=== PATIENT | female | born 1955 | race African-American/Black ===

== ENCOUNTER 2017-01-23 09:03 | Day surgery (SDC) | payer MEDICARE, OTHER ==
--- NOTE | ~2017-01-23 | OP ---
Record Of Operation [facility] [address] [place]. [address] NAME: RITA PASTRANA : 55 STATUS : REG [facility] PAT#: [id number] AGE: 61 ADM/REG DATE : 01/23/17 MR#: [id number] REPORT SERV DATE: 01/23/17 DICTATED BY: DIANA PINEDA III DATE: 01/23/17 REPORT STATUS : Draft TRANSCRIBED BY: MODL DATE: 01/23/17 DATE OF PROCEDURE: 01/23/2017 PREOPERATIVE DIAGNOSIS: End-stage renal disease, with need for removal of unused peritoneal dialysis catheter. POSTOPERATIVE DIAGNOSIS: End-stage renal disease, with need for removal of unused peritoneal dialysis catheter. PROCEDURE: Removal of unused peritoneal dialysis catheter. SURGEON: Dr. Diana Pineda. ANESTHESIA: General with intubation. COMPLICATIONS: None. ESTIMATED BLOOD LOSS: Less than 5 mL. SPECIMENS: Catheter for identification. DRAINS: None. LAP AND SPONGE COUNT: Correct x3. BRIEF HISTORY: This 61-year-old female has a history of end-stage renal disease. The patient is currently dependent on hemodialysis. She has a peritoneal dialysis catheter which was placed in [place] over 10 years ago. It was felt that removal of this catheter was indicated. This procedure, the risks, benefits, and alternatives, including but not limited to the risk for bleeding, infection, enterotomy, injury to abdominal structure, postop small bowel obstruction, ileus, incisional hernia, dehiscence, leakage of ascites from her incision and unforeseen complications including deep venous thrombosis, pulmonary embolus, myocardial infarction, stroke, pneumonia, and , were fully explained to the patient prior to surgery. Her questions were answered. She understood the risks and agreed to the surgery as planned. PROCEDURE IN DETAIL: After being properly identified and after discussing the risks of surgery with the patient and her family again in the preoperative area, she was taken to the operating room and placed in the supine position on the operating room table. General anesthesia was administered. She was intubated without difficulty. The abdomen was prepped and draped sterilely in the usual fashion. After an appropriate "time-out" per JCAHO standards, a small vertical incision was made in the midline, beneath the navel, over the previous incision. The incision was continued through the subcutaneous tissue. Hemostasis was controlled with electrocautery. The incision was continued down to the fascia. The cuff at the level of the fascia was identified. This was dissected free from the fascia. The intraabdominal portion of the catheter was completely removed. The entire catheter was Record Of Operation [facility] [address] [place]. [address] NAME: RITA PASTRANA : 55 STATUS : REG [facility] PAT#: [id number] AGE: 61 ADM/REG DATE : 01/23/17 MR#: [id number] REPORT SERV DATE: 01/23/17 DICTATED BY: DIANA PINEDA III DATE: 01/23/17 REPORT STATUS : Draft TRANSCRIBED BY: MODL DATE: 01/23/17 removed. The exit site of the catheter from the abdominal wall was closed by closing the fascia with interrupted 0 Prolene suture. It should be noted that immediately on removing the catheter, a large amount of clear ascites came gushing forward from the abdominal cavity. This was aspirated but there was an extremely large amount of ascites which continued. This was closed again with interrupted 0 Prolene sutures. Using sharp dissection, the second cuff which was in the subcutaneous tissue was dissected free from the subcutaneous tissue and brought through the left lateral abdominal wall incision where the catheter was exiting. The entire catheter was removed including the intraabdominal portion of the catheter in the intraabdominal wall portion of the catheter. Hemostasis was assured. The subcutaneous tissue of the midline incision was closed with a running 3-0 chromic suture. The skin was closed with running subcuticular 4-0 Monocryl stitch. Dressings were applied. Anesthesia was reversed. The patient was taken to the recovery room in stable condition. She tolerated the procedure well. Her family was informed of the results of surgery. The patient will be discharged when stable and comfortable. Her family was advised that she should keep the wounds clean and dry for 48 hours and that she should resume her usual medications and that she should not perform any heavy lifting for four-to- five weeks. She has been asked to return in two weeks for followup or sooner if any fever, chills, wound drainage, or other problems prior to that time. She was given a prescription for Percocet 7.5 one t.i.d., #12, as needed for pain, which she was advised not to use while driving. RHJ/MODL Diana Pineda III, M.D. / [id number] CC: Han Reed III
--- NOTE | ~2017-01-23 | PREOPHP ---
PreOp History and Physical [address] [place]. [address] NAME: RITA PASTRANA : 55 STATUS : [facility]#: [id number] AGE: 61 ADM/REG DATE : 01/23/17 MR#: [id number] REPORT SERV DATE: 01/24/17 DICTATED BY: DIANA PINEDA III DATE: 12/31/16 REPORT STATUS : Draft TRANSCRIBED BY: MODTristin DATE: 12/31/16 HISTORY OF PRESENT ILLNESS: This 61-year-old female comes to the operating room for removal of a peritoneal dialysis catheter. The patient has a history of end-stage renal disease. She is currently dependent on hemodialysis. The patient has a peritoneal dialysis catheter which was placed [address] [facility]. Recently, she has developed congestive heart failure and it was felt that she is no longer a candidate for peritoneal dialysis. She comes to the operating room now for removal of this peritoneal dialysis catheter. PAST MEDICAL HISTORY: 1. End-stage renal disease, dialysis dependent. 2. History congestive heart failure. 3. Hyperlipidemia. 4. Hypertension. ALLERGIES: AMOXICILLIN, AUGMENTIN, AND PENICILLIN. MEDICATIONS: Imuran, Dialyvite, calcium, Plavix, [place], iron, folic acid, gentamicin, hydroxyzine, loperamide, megestrol, omeprazole, potassium, pravastatin, and temazepam. FAMILY HISTORY: Unremarkable. PAST SURGICAL HISTORY: Status post peritoneal dialysis catheter placement in 2006. SOCIAL HISTORY: No history of tobacco or alcohol use. REVIEW OF SYSTEMS: The patient's 14-point review of systems is otherwise unremarkable. PHYSICAL EXAMINATION: GENERAL: This is a female in no acute distress. She is alert and oriented x3. VITAL SIGNS: Blood pressure is 149/89, pulse 43, and temp 98.1. HEENT: Unremarkable. Cranial nerves 2 through 12 are jim. LUNGS: Clear. CARDIAC: Normal. ABDOMEN: Soft, nontender. She has a peritoneal dialysis catheter exiting from her mid abdomen. There is a long midline incision. EXTREMITIES: Unremarkable. ASSESSMENT: 1. 61-year-old female with end-stage renal disease, now dependent on hemodialysis, with need for removal of unused peritoneal dialysis catheter. 2. End-stage renal disease, dialysis dependent. 3. Congestive heart failure. PreOp History and Physical [id number] [place]. [address] NAME: RITA PASTRANA : 55 STATUS : [facility]#: [id number] AGE: 61 ADM/REG DATE : 01/23/17 MR#: [id number] REPORT SERV DATE: 01/24/17 DICTATED BY: DIANA PINEDA III DATE: 12/31/16 REPORT STATUS : Draft TRANSCRIBED BY: PAULA DATE: 12/31/16 4. Hypertension. 5. Hyperlipidemia. PLAN: The patient comes to the operating room now for removal of this peritoneal dialysis catheter. I have explained to the patient that full laparotomy may be required depending on the internal location of the inner cuff. I explained that I did not place this catheter and therefore it is unclear exactly the anatomy involved and therefore a laparotomy may be required. This procedure, the risks, benefits, and alternatives, including but not limited to the risk for bleeding, infection, enterotomy, injury to any abdominal structure, postop small bowel obstruction, ileus, incisional hernia, dehiscence, leakage of dialysis fluid from her incision and unforeseen complications including deep venous thrombosis, pulmonary embolus, myocardial infarction, stroke, pneumonia, , have been explained to the patient prior to the surgery. The expected length of recovery has been explained to the patient. The patient's questions have been answered. She understands the risks and agrees to surgery as planned. RHCricket/PAULA Diana Pineda III, M.D. / [id number] CC: João Membreno M.D.
[~2017-01-23 09:03] MED LIST: ACET500CAP PO; ALLEGRA180 PO; FLONASE NAS; FOLIC PO; HALF81 PO; MEG20 PO; MULTIPLE VIT PO; NORV5 PO; PLAVIX PO; PRAVACHOL40 MG PO; PROAIR HFA INH; SENSIPAR30 MG PO
[2017-01-23 10:14] LABS: HEMATOCRIT 44.9 % (36.0-48.0); HEMOGLOBIN 14.2 g/dL (12.0-16.0); MEAN CORPUS HGB CONC 31.6 g/dL (32.0-36.0); MEAN CORPUSCULAR HEMOGLOB 29.6 pg (26.0-34.0); MEAN CORPUSCULAR VOLUME 93.7 fL (80-100); MEAN PLATELET VOLUME 11.8 fL (9.2-13.0); PLATELET COUNT 158 10/3/uL (150-400); RBC DISTRIBUTION WIDTH 15.2 % (12.0-16.0); RED CELL COUNT 4.79 10/6/uL (4.0-5.6); WHITE BLOOD CELLS 3.6 10/3/uL (4.5-10.5)
[2017-01-23 10:17] LABS: MANUAL DIFF YES %
[2017-01-23 10:32] LABS: ALBUMIN 2.9 G/DL (3.5-5.0); BUN (BLOOD UREA NITROGEN) 15 MG/DL (6-23); CALCIUM, SERUM 9.7 MG/DL (8.5-10.4); CHLORIDE, SERUM 97 MMOL/L (96-112); CO2 (CARBON DIOXIDE) 33 MMOL/L (24-34); CREATININE 5.73 MG/DL (0.55-1.02); GFR AFRICAN AMERICAN 9 ML/MIN (>=60); GFR NON AFRICAN AMERICAN 7 ML/MIN (>=60); GLUCOSE, SERUM 72 MG/DL (60-99); SGPT(ALT) 13 U/L (5-65); SODIUM, SERUM 134 MMOL/L (135-148); TOTAL BILIRUBIN 0.8 MG/DL (0-1.2)
[2017-01-23 10:33] LABS: A/G RATIO 0.4 (0.7-1.9); ALKALINE PHOSPHATASE 157 U/L (45-117); GLOBULIN 6.9 G/DL (2.5-4.1); TOTAL PROTEIN 9.8 G/DL (6.0-8.5)
[2017-01-23 10:34] LABS: BAND NEUTROPHILS 1 %; EOSINOPHILS 8 %; EOSINOPHILS ABSOLUTE (CALC) 0.29 10/3/uL (0.0-0.53); LYMPHOCYTES 36 %; MONOCYTES 18 %; MONOCYTES ABSOLUTE (CALC) 0.65 10/3/uL (0.21-1.20); NEUTROPHILS ABSOLUTE (CALC) 1.37 10/3/uL (2.02-8.40); POTASSIUM, SERUM 4.8 MMOL/L (3.5-5.3); SEGMENTED NEUTROPHIL (0) 37 %; SGOT(AST) 43 U/L (5-40); TOTAL NUCLEATED CELLS 100
[2017-01-23 10:35] LABS: PLATELET ESTIMATE ADQ (ADEQUATE); TOXIC GRANULATION 1+; VACUOLATED NEUTROPHILES OCC
[2017-01-23 10:36] LABS: POIKILOCYTOSIS 1+ (5-10/OIF) (0-5/OIF)
[2017-03-22] MEDS ORDERED: NORV5 PO (09:46)
[2017-03-22] MEDS ORDERED: SINGULAIR1 PO (09:56)
[2017-03-22] MEDS ORDERED: ZOFRAN ODT4 MG PO (09:58)
[2017-03-22] MEDS ORDERED: REST75 PO (09:58)
[2017-03-22] MEDS ORDERED: PR25 PO (09:59)
[2017-03-22] MEDS ORDERED: FLONASE NAS (10:00)
[2017-03-22] MEDS ORDERED: ROCALTROL 0.0.25 MCG PO (10:01)
[2017-03-22] MEDS ORDERED: COREG25 PO (10:05)
[2017-03-22] MEDS ORDERED: ZYRTEC ALLGY10 MG PO (10:06)
[2017-03-22] MEDS ORDERED: ASTELIN NAS (10:07)
[2017-03-22] MEDS ORDERED: IMU PO (10:07)
[2017-03-22] MEDS ORDERED: ENDOCET1 TA1 PO (10:09)
[2017-05-13] MEDS ORDERED: BEVESPI AEROS10.7 GM INH (11:19)
[2017-05-13] MEDS ORDERED: PROAIR HFA INH (11:20)
[2017-05-13] MEDS ORDERED: STIOLTO RESPIMAT4 GM INH (11:21)
[2017-05-17] MEDS ORDERED: PRAVACHOL80 MG PO (19:19)
[2017-05-17] MEDS ORDERED: PROAIR HFA INH (19:19)
[2017-05-17] MEDS ORDERED: BEVESPI AEROS10.7 GM INH (19:20)
[2017-05-17] MEDS ORDERED: STIOLTO RESPIMAT4 GM INH (19:20)
[2017-05-17] MEDS ORDERED: SENSIPAR30 MG PO (19:20)
[2017-05-17] MEDS ORDERED: AT25 PO (19:21)
[2017-05-17] MEDS ORDERED: PLAVIX PO (19:21)
[2017-05-17] MEDS ORDERED: FOLIC ACID400 MC1 PO (19:22)
[2017-05-17] MEDS ORDERED: GENERLAC PO (19:22)
[2017-05-17] MEDS ORDERED: ASAB PO (19:22)
[2017-05-17] MEDS ORDERED: BIST PO (19:23)
[2017-05-17] MEDS ORDERED: ASTELIN NAS (19:24)
[2017-05-17] MEDS ORDERED: 8 HOUR650 MG PO (19:26)
[2017-05-17] MEDS ORDERED: NEO-OINT15 TOP (19:27)
[2017-05-19] MEDS ORDERED: PROTONIXIV (19:01)
== END 2017-01-23 21:18 | disposition home or self-care (01) ==
LOC: SDC 09:03
PROVIDERS: Surgery
PROC: 0WPG03Z Removal of Infusion Device from Peritoneal Cavity, Open Approach (ICD-10-PCS; principal; 2017-01-23 11:15)
DX: Z49.02 Encounter for fitting and adjustment of peritoneal dialysis catheter (principal); I13.2 Hypertensive heart and chronic kidney disease with heart failure and with stage 5 chronic kidney disease, or end stage renal disease; N18.6 End stage renal disease; I50.9 Heart failure, unspecified; E78.5 Hyperlipidemia, unspecified; Z88.1 Allergy status to other antibiotic agents; Z88.0 Allergy status to penicillin; Z88.8 Allergy status to other drugs, medicaments and biological substances; Z90.49 Acquired absence of other specified parts of digestive tract; Z98.890 Other specified postprocedural states
CPT/HCPCS: 71020; 80053; 85025; 88300; 93005; A9270-GY; J0330; J1956; J2250; J2405; J3010

== ENCOUNTER 2017-03-12 19:01 | Inpatient (IN) | payer MEDICARE, OTHER ==
--- NOTE | ~2017-03-12 | CN ---
Consultation Report [facility] [address] [place]. [address] NAME: RITA PASTRANA : 55 STATUS : ADM IN [facility]#: [id number] AGE: 61 ADM/REG DATE : 03/13/17 MR#: [id number] REPORT SERV DATE: 03/15/17 DICTATED BY: TAJ VELASQUEZ DATE: 03/15/17 REPORT STATUS : Draft TRANSCRIBED BY: MODTristin DATE: 03/15/17 CARDIOLOGY CONSULTATION DATE OF CONSULTATION: 03/15/2017 REASON FOR CONSULT: Murmur and pericardial effusion. HISTORY OF PRESENT ILLNESS: Ms. Pastrana is a 61-year-old female known to [place], who is being admitted with ascites of undetermined etiology. She is now status post a large volume paracentesis removing 6.7 L, which is undergoing evaluation by Gastroenterology. She has known end-stage renal disease and status post recent transition from peritoneal dialysis to standard hemodialysis. She has a known baseline murmur and a chronic small pericardial effusion. She has had several recent serial echocardiogram to reassess this, all with similar findings of an LVEF 50%-55%, LVH, aortic valve sclerosis, and mild mitral regurgitation. She was recently hospitalized at [facility] for an unrelated reason and had a mildly abnormal troponin, which was evaluated with [id number] heart catheterization that showed left dominant circulation with mild nonobstructive calcific coronary artery disease. No aortic valve gradient was noted at that time. She is now resting much more comfortably. She has had no recent chest pain/angina. She denies palpitations or syncope. She has had no lower extremity edema. REVIEW OF SYSTEMS: Pertinent positives and negatives are as outlined above, other pertinents include early satiety before her large volume paracentesis. Some weight loss. Generalized fatigue and malaise. No fevers. No cough or sputum production. PAST MEDICAL HISTORY: 1. Chronic diastolic heart failure. 2. Coronary artery disease, mild-nonobstructive. 3. Hypertension. 4. Hyperlipidemia. 5. End-stage renal disease. 6. Systemic lupus. CURRENT HOME MEDICATIONS: 1. Plavix 75 mg daily. 2. Pravastatin 80 mg at bedtime. 3. Prilosec as directed. 4. Megace as directed. 5. Renvela 2400 mg with meals. 6. Potassium supplementation. 7. Hydroxyzine p.r.n. 8. Folic acid supplementation. 9. Iron supplementation. Consultation Report [address] [place]. [address] NAME: RITA PASTRANA : 55 STATUS : ADM IN PAT#: [id number] AGE: 61 ADM/REG DATE : 03/13/17 MR#: [id number] REPORT SERV DATE: 03/15/17 DICTATED BY: TAJ VELASQUEZ DATE: 03/15/17 REPORT STATUS : Draft TRANSCRIBED BY: PAULA DATE: 03/15/17 10.Sensipar tabs as directed. 11.PhosLo 667 mg with meals. 12.Vitamin B supplementation. ALLERGIES: INCLUDE AUGMENTIN AND AMOXICILLIN, WHICH CAUSE SWELLING AND ITCHING. SOCIAL HISTORY: She does not use tobacco products, consume alcohol, or illegal drugs. FAMILY HISTORY: Significant for CAD. PHYSICAL EXAMINATION: VITALS: Temperature is 99.9, pulse 70, respirations 16, and blood pressure 120/80. GENERAL: A chronically ill-appearing female, who appears older than stated age and is in no acute distress. HEENT: Sclerae anicteric, mucous membranes moist and without lesions. NECK: No jugular venous distention. No hepatojugular reflux, carotid upstrokes 2+ and symmetric, there are no carotid or subclavian bruit. LUNGS: Mildly decreased breath sounds at bilateral bases with no crackles. CARDIOVASCULAR: Regular with soft S1 and normal S2. No audible S3. There is a 2/6 early systolic ejection murmur at the right sternal border without radiation. No parasternal lift. PMI is not palpable. ABDOMEN: Mildly distended, soft, nontender. Bowel sounds positive and normoactive. There is a slight fluid wave noted. PULSES: Radial and dorsalis pedis 1+ and symmetric. EXTREMITIES: Warm. No edema. SKIN: No clubbing or cyanosis, no rashes or lesions. IMPRESSION: 1. Ascites. 2. Chronic diastolic heart failure. 3. Nonobstructive coronary artery disease. 4. Aortic valve sclerosis without stenosis. 5. Mild mitral regurgitation. 6. Small chronic pericardial effusion. 7. End-stage renal disease, on hemodialysis. 8. Systemic lupus. 9. Hypertension. 10.Hyperlipidemia. PLAN: Ms. Pastrana has a known chronic murmur, which sounds at baseline on physical exam, and has been assessed with recent serial echocardiograms and is unchanged. She also had no significant aortic valve gradient on a recent cardiac catheterization, which showed nonobstructive CAD with a left dominant coronary circulation. Her degree of ascites is not explained by chronic diastolic heart failure. We will review her recently repeated echocardiogram. No other cardiac recommendations foreseen at this time due to her extensive Consultation Report [address] [place]. [address] NAME: RITA PASTRANA : 55 STATUS : ADM IN PAT#: [id number] AGE: 61 ADM/REG DATE : 03/13/17 MR#: [id number] REPORT SERV DATE: 03/15/17 DICTATED BY: TAJ VELASQUEZ. DATE: 03/15/17 REPORT STATUS : Draft TRANSCRIBED BY: PAULA DATE: 03/15/17 recent evaluation. Ongoing GI evaluation and hemodialysis per Nephrology. AEA/PAULA Taj Velasquez M.D. / [id number] CC: Cleveland Quinteros III, M.D.
--- NOTE | ~2017-03-12 | CN ---
Consultation Report [facility] [address] [place]. [address] NAME: RITA PASTRANA : 55 STATUS : DIS IN PAT#: [id number] AGE: 61 ADM/REG DATE : 03/13/17 MR#: [id number] REPORT SERV DATE: 03/17/17 DICTATED BY: SHANNA GOVEA DATE: 03/14/17 REPORT STATUS : Draft TRANSCRIBED BY: MODL DATE: 03/14/17 GI CONSULTATION DATE OF CONSULTATION: 03/14/2017 REASON FOR CONSULTATION: Evaluation and management of ascites. HISTORY OF PRESENT ILLNESS: Ms. Pastrana is a 61-year-old female patient, who was supposed to see Dr. Barba on 03/13/2017 in the outpatient setting secondary to abdominal distention, however, she was seen by Dr. Quinteros on the 03/12/2017, who subsequently admitted her to the hospital for further management. She had presented to Dr. Quinteros office with progressive tense abdominal ascites. She does have a history of end-stage renal disease, now hemodialysis dependent. She has a history of previous peritoneal dialysis. She complains of beginning to notice distention of her abdomen in October of this year which has progressively worsened to the point where she was unable to eat. It did make her short of breath. When she was seen by Dr. Quinteros, it was felt she needed to be admitted secondary to her tense abdominal ascites. Of note, the patient was noted to be at [facility] in October of this year secondary to cardiac reasons, at that point in time, she had an echo showing an ejection fraction of 55%. Noted a CT scan at [facility] done in July 2016, noted some small volume ascites. She was seen here on 03/04/[address] scan being done showing small to moderate pericardial effusion with underlying mild cardiomegaly and a large volume of ascites. She underwent on 03/13/2017 ultrasound of the abdomen showing large volume ascites. The liver size and echogenicity were normal. Color Doppler shows normal hepatopetal flow in normal caliber portal vein. She had a large volume of ascites in both upper quadrants. Splenic size was normal. The splenic tearing, contained multiple echogenic foci. She underwent paracentesis on 03/13/2017 with removal of 6.7 L of clear yellow ascites. She states that after removal of the fluid she felt dramatically better. She was able to eat overnight without difficulty. She does state this morning that she feels like she has reaccumulated some fluid, but she has no tense abdominal ascites. She has a round abdomen which is soft, no fluid shift was noted. She has no complaints of abdominal pain at this time. In review of fluid analysis no albumin from ascites was sent. I have discussed with the lab, they did keep some of her fluid. We will have them run an albumin on that so we could calculate a SAAG level to help us further clarify her possible calls of ascites whether it would be transudative or exudative. She has a notable past medical history for end-stage renal disease, previous peritoneal dialysis, now on hemodialysis, congestive heart failure, last ejection fraction of 55%, hyperlipidemia, hypertension, ascites, lupus. SURGICAL HISTORY: PD catheter replaced in 2006, removal 2017; cholecystectomy. SOCIAL HISTORY: She has no history of alcohol, tobacco, or illicits. She lives independently with her mother. FAMILY HISTORY: Noncontributory from a GI standpoint. Consultation Report [address] [place]. [address] NAME: RITA PASTRANA : 55 STATUS : DIS IN PAT#: [id number] AGE: 61 ADM/REG DATE : 03/13/17 MR#: [id number] REPORT SERV DATE: 03/17/17 DICTATED BY: SHANNA GOVEA DATE: 03/14/17 REPORT STATUS : Draft TRANSCRIBED BY: PAULA DATE: 03/14/17 ALLERGIES: TO AMOXICILLIN, AUGMENTIN, PENICILLIN. HOME MEDICATIONS: Consist of vitamin B complex, PhosLo, Sensipar, Plavix, ferrous sulfate, folic acid, Atarax, Imodium, Megace, Prilosec, potassium, Pravachol, and Renvela. REVIEW OF SYSTEMS: A 10-point review of systems was obtained. Pertinent positives addressed in the history of present illness. PHYSICAL EXAMINATION: VITAL SIGNS: Temperature 98.2, pulse 79, respirations of 20, and blood pressure 132/62. NEURO: Reveals an alert, ill-appearing, emaciated female, standing up in the room. GENERAL: She is cooperative. She is in no acute distress. She is oriented x3. She has no signs of asterixis. Noted impaired vision. HEAD, EARS, EYES, NOSE, AND THROAT: Appeared to be anicteric. Pupils equal, round, and reactive to light and accommodation. Normocephalic and atraumatic. NECK: No JVD. No palpable nodes. LUNGS: Diminished throughout with normal respiratory effort exhibited. CARDIOVASCULAR: Regular rate and rhythm. No audible murmur heard on auscultation. ABDOMEN: Soft, round with mild distention secondary to ascites. She has hypoactive bowel sounds. EXTREMITIES: No edema. Normal distal pulses. SKIN: Warm, dry, and intact. PERTINENT LABORATORY DATA: Sodium 138, potassium is 4.3, BUN is 23, creatinine is 7.35. White blood cell count is 5.1, hemoglobin 10.4, hematocrit 32.7, platelet count 169. INR of 1.1. Total bilirubin 0.4, alkaline phosphatase 152, ALT 11, AST 25, albumin serum 2.0. ASSESSMENT AND PLAN: 1. Ascites, questionable etiology, status post paracentesis of 6.7 L. 2. End-stage renal disease with hemodialysis. 3. History of congestive heart failure, last ejection fraction 55%. 4. History of lupus. PLAN: 1. We will add albumin to ascites. Workup to calculate SAAG. Question transudative versus exudative cause. 2. It will be difficult management of her re-accumulation of ascites in the future secondary to end-stage liver disease and diuretic used for ascites. We will discuss further with Renal as well as Dr. Brannon. We will follow. DG/MODL Consultation Report [address] [address] NAME: RITA PASTRANA : 55 STATUS : DIS IN PAT#: [id number] AGE: 61 ADM/REG DATE : 03/13/17 MR#: [id number] REPORT SERV DATE: 03/17/17 DICTATED BY: SHANNA GOVEA DATE: 03/14/17 REPORT STATUS : Draft TRANSCRIBED BY: PAULA DATE: 03/14/17 [place] GERARDO Negron / [id number] CC: Cleveland Quinteros III, M.D.
--- NOTE | ~2017-03-12 | DS ---
Discharge Summary [facility] [address] [place]. [address] NAME: RITA PASTRANA : 55 STATUS : DIS IN PAT#: [id number] AGE: 61 ADM/REG DATE : 03/13/17 MR#: [id number] REPORT SERV DATE: 03/31/17 DICTATED BY: DIANA PINEDA III DATE: 03/28/17 REPORT STATUS : Draft TRANSCRIBED BY: PAULA DATE: 03/28/17 Data Collection from hospitalization DISCHARGE DIAGNOSES: 1. Ascites - etiology unclear. 2. Hypertension. 3. End-stage renal disease. 4. History of congestive heart failure. 5. Hyperlipidemia. CONSULTATIONS: 1. Taj Ramírez M.D. 2. GERARDO Merrill. PROCEDURES: 1. Abdominal ultrasound, 03/13/2017. 2. Ultrasound-guided paracentesis, 03/13/2017. PATHOLOGY: Peritoneal fluid cytology (smears, ThinPrep, and cell block) - negative for atypical or malignant cells. DISCHARGE MEDICATIONS: Dialyvite one tablet daily; PhosLo 667 mg with meals; Sensipar 30 mg on Mondays, Wednesdays, and Fridays; Plavix 75 mg daily; ferrous gluconate 324 mg daily; folic acid 400 mcg daily; Atarax 25 mg three times a day as needed; Imodium 2 mg as needed; Megace 10 mL daily; Promega 1 g daily; Prilosec 20 mg daily; K-Tab 10 mEq twice a day; Pravachol 80 mg at bedtime; and Renvela 2400 mg with meals. CONDITION ON DISCHARGE: Stable. DISPOSITION: The patient was discharged home on a renal diet with activities as instructed. FOLLOWUP: She would follow up with me as needed. She would follow up with Maya Calderon as needed. She would follow up with Dr. Naomi Byers as needed. HOSPITAL COURSE: This is a 61-year-old female who presented to the hospital emergently with progressive tense abdominal ascites. The patient has a history of end-stage renal disease and is dialysis dependent. The patient has abdominal ascites which had been present for some time, this had become progressively worse. The patient presented to my office and was found to have very severe tense abdominal ascites of unclear etiology. The patient was in extreme discomfort, and it was felt that admission to the hospital was indicated. She was admitted to the hospital at this time for further evaluation and treatment. Upon admission, an abdominal ultrasound was performed, it was felt that she would need to undergo a paracentesis. Ultrasound-guided paracentesis was performed, 6.7 L of clear yellow ascites was removed from the peritoneal cavity. The following day, she was seen by James Negron for evaluation and management of ascites. The patient has a history of end stage renal disease and is now hemodialysis dependent. She has a previous history of peritoneal dialysis. She said she began to notice distention of her abdomen in 10/2016 Discharge Summary [place] [address] [id number] [facility] [place]. [address] NAME: RITA PASTRANA : 55 STATUS : DIS IN PAT#: [id number] AGE: 61 ADM/REG DATE : 03/13/17 MR#: [id number] REPORT SERV DATE: 03/31/17 DICTATED BY: DIANA PINEDA III DATE: 03/28/17 REPORT STATUS : Draft TRANSCRIBED BY: PAULA DATE: 03/28/17 which then progressed and worsened to the point that she was unable to eat. It did make her short of breath. The patient said after removal of the fluid she felt dramatically better. She had been able to eat overnight without difficulty. She said that on the morning of this consult she felt like she had re-accumulated some fluid, but she had no tense abdominal ascites. She had a round abdomen which was soft. No fluid shift was noted. There were no complaints of abdominal pain at this time. Albumin was going to be checked on the fluid that was sent for labs. It was felt there was a question of transudative versus exudative cause. It would be difficult to manage reaccumulation of ascites in the future secondary to end-stage renal disease and diuretics used for ascites. On 03/15/2017, she was seen by Dr. Rickie Ramírez regarding murmur and pericardial effusion. She has a known baseline murmur and chronic small pericardial effusion. She had had several recent serial echocardiograms to reassess this, all with similar findings of left ventricular ejection fraction of 50% to 55%, left ventricular hypertrophy, aortic valve sclerosis, and mild mitral regurgitation. She had recently been hospitalized at [facility] for an unrelated reason and had a mildly abnormal troponin which was evaluated with [id number] heart catheterization which revealed left dominant circulation with mild nonobstructive calcific coronary artery disease. No aortic valve gradient was noted at that time. She was resting much more comfortably. She had no recent chest pain or angina. She denied palpitations or syncope, and she had no lower extremity edema. The patient had no significant aortic valve gradient on recent cardiac catheterization which showed nonobstructive coronary artery disease with left dominant coronary circulation. Her degree of ascites is not explained by chronic diastolic heart failure. We were going to review her recently repeated echocardiogram. No other cardiac recommendations were pursuable at this time due to her extensive recent evaluation. Discharge planning was performed. Hemodialysis therapy continued. Echocardiogram had been performed. She had not had a bowel movement in several days. She had no edema. Her cultures were negative. Urine protein was going to be checked as well as QuantiFERON. On 03/16/2017, she still had some abdominal pain. There were no immediate complaints. There had been no significant for reaccumulation of her ascites. She was wanting to go home. Discharge instructions were given. Due to her improved and stable condition, she was discharged home with the above-stated instructions. Information collected by: Hilda Baeza I submit the above information as my discharge summary. TG/MODL Diana Pineda III, M.D. / [id number] CC: Han Reed III, FNP Allen E Atchley, M.D. Winnifred Dunbar-Davies, MD
--- NOTE | ~2017-03-12 | HP ---
History And Physical [address] [place]. [address] NAME: RITA PASTRANA : 55 STATUS : ADM IN [facility]#: [id number] AGE: 61 ADM/REG DATE : 03/12/17 MR#: [id number] REPORT SERV DATE: 03/12/17 DICTATED BY: DIANA PINEDA III DATE: 03/12/17 REPORT STATUS : Draft TRANSCRIBED BY: MODTristin DATE: 03/12/17 DATE OF ADMISSION: 03/12/2017 HISTORY OF PRESENT ILLNESS: This 61-year-old female was admitted to hospital emergently with progressive tense abdominal ascites. The patient has a history of end-stage renal disease, is dialysis dependent. The patient has abdominal ascites which has been present for some time. This has become progressively worse. The patient presented to my office today and was found to have very severe tense abdominal ascites of unclear etiology. The patient is in extreme discomfort and it was felt that admission to the hospital is indicated. PAST MEDICAL HISTORY: 1. End-stage renal disease, currently hemodialysis dependent. 2. History of congestive heart failure. 3. Hyperlipidemia. 4. Hypertension. PAST SURGICAL HISTORY: Includes peritoneal dialysis catheter placed in 2006, removal of peritoneal dialysis catheter on 01/23/2017. MEDICATIONS: Imuran, Dialyvite, calcium, salsalate, Plavix, omega, iron, folic acid, gentamicin, hydroxyzine, loperamide, megestrol, omeprazole, potassium, pravastatin, temazepam, sevelamer. SOCIAL HISTORY: No history of tobacco or alcohol use. ALLERGIES: TO AMOXICILLIN, AUGMENTIN, AND PENICILLIN. OBJECTIVE PHYSICAL EXAM: GENERAL: This is an ill-appearing emaciated female, in no acute distress. She is alert and oriented x3. She appears ill. Abdomen is very protuberant and distended with ascites. Her abdominal wall is very tight. VITAL SIGNS: Blood pressure 113/71, pulse 77, temperature 97.9. HEENT: Unremarkable. Cranial nerves II through XII are normal. LUNGS: Clear. Cardiac: Unremarkable. ABDOMEN: As above. EXTREMITIES: Normal. ASSESSMENT: 1. A 61-year-old female with progressive severe abdominal ascites, unclear etiology. Differential diagnosis includes occult malignancy or congestive heart failure. 2. History of congestive heart failure. 3. End-stage renal disease, dialysis dependent. 4. Hypertension. History And Physical [address] [address] NAME: RITA PASTRANA : 55 STATUS : ADM IN [facility]#: [id number] AGE: 61 ADM/REG DATE : 03/12/17 MR#: [id number] REPORT SERV DATE: 03/12/17 DICTATED BY: DIANA PINEDA III DATE: 03/12/17 REPORT STATUS : Draft TRANSCRIBED BY: PAULA DATE: 03/12/17 5. Hyperlipidemia. PLAN: The patient will be admitted to the hospital emergently. I will request a Nephrology consult and possible paracentesis. This plan was explained to the patient. Her questions were answered. She understands and agrees to this as planned. CHILO/PAULA Diana Pineda III, M.D. / [id number] CC: Diana Pineda III, M.D.
[2017-03-12 20:07] LABS: BASOPHILS 1.6 %; BASOPHILS ABSOLUTE 0.05 10/3/uL (0.0-0.16); EOSINOPHILS 6.8 %; EOSINOPHILS ABSOLUTE 0.21 10/3/uL (0.0-0.53); HEMOGLOBIN 12.3 g/dL (12.0-16.0); IMMATURE GRANULOCYTES 0.3 %; IMMATURE GRANULOCYTES ABSOLUTE 0.01 10/3/uL (0.0-0.11); LYMPHOCYTES 33.2 %; LYMPHOCYTES ABSOLUTE 1.02 10/3/uL (0.67-4.30); MEAN CORPUS HGB CONC 30.9 g/dL (32.0-36.0); MEAN CORPUSCULAR HEMOGLOB 27.9 pg (26.0-34.0); MEAN PLATELET VOLUME 11.3 fL (9.2-13.0); MONOCYTES 19.9 %; MONOCYTES ABSOLUTE 0.61 10/3/uL (0.21-1.20); NEUTROPHILS 38.2 %; NEUTROPHILS ABSOLUTE 1.17 10/3/uL (2.02-8.40); RBC DISTRIBUTION WIDTH 15.8 % (12.0-16.0); RED CELL COUNT 4.41 10/6/uL (4.0-5.6); WHITE BLOOD CELLS 3.1 10/3/uL (4.5-10.5)
[2017-03-12 20:08] LABS: HEMATOCRIT 39.8 % (36.0-48.0); MANUAL DIFF NO %; MEAN CORPUSCULAR VOLUME 90.2 fL (80-100); PLATELET COUNT 207 10/3/uL (150-400)
[2017-03-12 20:21] LABS: A/G RATIO 0.4 (0.7-1.9); ALBUMIN 2.5 G/DL (3.5-5.0); ALKALINE PHOSPHATASE 152 U/L (45-117); BUN (BLOOD UREA NITROGEN) 12 MG/DL (6-23); CALCIUM, SERUM 9.3 MG/DL (8.5-10.4); CHLORIDE, SERUM 97 MMOL/L (96-112); CO2 (CARBON DIOXIDE) 35 MMOL/L (24-34); GLOBULIN 6.4 G/DL (2.5-4.1); SGOT(AST) 25 U/L (5-40); SGPT(ALT) 11 U/L (5-65); SODIUM, SERUM 138 MMOL/L (135-148); TOTAL BILIRUBIN 0.4 MG/DL (0-1.2); TOTAL PROTEIN 8.9 G/DL (6.0-8.5)
[2017-03-12 20:22] LABS: CREATININE 4.88 MG/DL (0.55-1.02); GFR AFRICAN AMERICAN 10 ML/MIN (>=60); GFR NON AFRICAN AMERICAN 9 ML/MIN (>=60); GLUCOSE, SERUM 87 MG/DL (60-99); POTASSIUM, SERUM 3.5 MMOL/L (3.5-5.3)
[2017-03-12 20:23] LABS: INTERNATIONAL NORMAL RATI 1.1 UNITS (-); PROTIME (NOT ORD) 14.2 SEC (12.0-14.5)
[2017-03-12] MEDS ORDERED: PRAVACHOL80 MG PO (22:28)
[2017-03-12] MEDS ORDERED: SENSIPAR30 M1 PO (22:28)
[2017-03-12] MEDS ORDERED: MEGACEUDL PO (22:28)
[2017-03-12] MEDS ORDERED: AT25 PO (22:28)
[2017-03-12] MEDS ORDERED: PHOSLO PO (22:29)
[2017-03-12] MEDS ORDERED: IMOD PO (22:29)
[2017-03-12] MEDS ORDERED: RENVELA800 MG PO (22:29)
[2017-03-12] MEDS ORDERED: PRILO PO (22:29)
[2017-03-12] MEDS ORDERED: PLAVIX PO (22:30)
[2017-03-12] MEDS ORDERED: FOLIC ACID400 MC1 PO (22:30)
[2017-03-12] MEDS ORDERED: FERROUS GLUC324 MG PO (22:30)
[2017-03-12] MEDS ORDERED: DIALYVITE PO (22:31)
[2017-03-12] MEDS ORDERED: OMEGA COMPLEX PO (22:31)
[2017-03-12] MEDS ORDERED: K-TABS10 MEQ PO (22:32)
[2017-03-13 07:26] LABS: INTERNATIONAL NORMAL RATI 1.1 UNITS (-); PARTIAL THROMBO TIME 28.2 SEC (22.5-37.2); PROTIME (NOT ORD) 14.4 SEC (12.0-14.5)
[2017-03-13 07:35] LABS: TOTAL PROTEIN 7.2 G/DL (6.0-8.5)
[2017-03-14 08:05] LABS: BASOPHILS ABSOLUTE 0.05 10/3/uL (0.0-0.16); EOSINOPHILS 1.8 %; EOSINOPHILS ABSOLUTE 0.09 10/3/uL (0.0-0.53); HEMOGLOBIN 10.4 g/dL (12.0-16.0); IMMATURE GRANULOCYTES 0.4 %; IMMATURE GRANULOCYTES ABSOLUTE 0.02 10/3/uL (0.0-0.11); LYMPHOCYTES 20.9 %; LYMPHOCYTES ABSOLUTE 1.07 10/3/uL (0.67-4.30); MEAN CORPUS HGB CONC 31.8 g/dL (32.0-36.0); MEAN CORPUSCULAR VOLUME 88.1 fL (80-100); MEAN PLATELET VOLUME 11.1 fL (9.2-13.0); MONOCYTES 19.9 %; MONOCYTES ABSOLUTE 1.02 10/3/uL (0.21-1.20); NEUTROPHILS ABSOLUTE 2.88 10/3/uL (2.02-8.40); PLATELET COUNT 169 10/3/uL (150-400); RBC DISTRIBUTION WIDTH 15.7 % (12.0-16.0); RED CELL COUNT 3.71 10/6/uL (4.0-5.6)
[2017-03-14 08:06] LABS: HEMATOCRIT 32.7 % (36.0-48.0); MANUAL DIFF NO %; WHITE BLOOD CELLS 5.1 10/3/uL (4.5-10.5)
[2017-03-14 08:16] LABS: ALBUMIN 1.9 G/DL (3.5-5.0); CALCIUM, SERUM 8.4 MG/DL (8.5-10.4); CHLORIDE, SERUM 98 MMOL/L (96-112); GFR AFRICAN AMERICAN 6 ML/MIN (>=60); GFR NON AFRICAN AMERICAN 5 ML/MIN (>=60); GLUCOSE, SERUM 79 MG/DL (60-99); PHOSPHORUS, SERUM 4.7 MG/DL (2.5-4.5); SODIUM, SERUM 138 MMOL/L (135-148)
[2017-03-14 08:17] LABS: BUN (BLOOD UREA NITROGEN) 23 MG/DL (6-23); CO2 (CARBON DIOXIDE) 29 MMOL/L (24-34); CREATININE 7.35 MG/DL (0.55-1.02); POTASSIUM, SERUM 4.3 MMOL/L (3.5-5.3)
[2017-03-15 04:27] LABS: HEMATOCRIT 34.1 % (36.0-48.0); HEMOGLOBIN 10.5 g/dL (12.0-16.0); MEAN CORPUS HGB CONC 30.8 g/dL (32.0-36.0); MEAN CORPUSCULAR HEMOGLOB 27.8 pg (26.0-34.0); MEAN CORPUSCULAR VOLUME 90.2 fL (80-100); MEAN PLATELET VOLUME 11.4 fL (9.2-13.0); PLATELET COUNT 123 10/3/uL (150-400); RBC DISTRIBUTION WIDTH 15.8 % (12.0-16.0); RED CELL COUNT 3.78 10/6/uL (4.0-5.6); WHITE BLOOD CELLS 5.4 10/3/uL (4.5-10.5)
[2017-03-15 04:28] LABS: MANUAL DIFF YES %
[2017-03-15 04:41] LABS: ALBUMIN 1.7 G/DL (3.5-5.0); CALCIUM, SERUM 8.3 MG/DL (8.5-10.4); CHLORIDE, SERUM 98 MMOL/L (96-112); CO2 (CARBON DIOXIDE) 29 MMOL/L (24-34); DIRECT BILIRUBIN 0.2 MG/DL (0.0-0.4); GLUCOSE, SERUM 89 MG/DL (60-99); INDIRECT BILIRUBIN(NOT ORDER) 0.6 MG/DL (0.1-0.9); POTASSIUM, SERUM 4.2 MMOL/L (3.5-5.3); SGOT(AST) 16 U/L (5-40); SODIUM, SERUM 134 MMOL/L (135-148); TOTAL BILIRUBIN 0.8 MG/DL (0-1.2); TOTAL PROTEIN 6.7 G/DL (6.0-8.5)
[2017-03-15 04:42] LABS: ALKALINE PHOSPHATASE 108 U/L (45-117); BUN (BLOOD UREA NITROGEN) 17 MG/DL (6-23); CREATININE 5.52 MG/DL (0.55-1.02); GFR AFRICAN AMERICAN 9 ML/MIN (>=60); GFR NON AFRICAN AMERICAN 8 ML/MIN (>=60); SGPT(ALT) < 6 U/L (5-65)
[2017-03-15 04:52] LABS: LYMPHOCYTES 23 %; LYMPHOCYTES ABSOLUTE (CALC) 1.24 10/3/uL (0.67-4.30); MONOCYTES 6 %; MONOCYTES ABSOLUTE (CALC) 0.32 10/3/uL (0.21-1.20); NEUTROPHILS ABSOLUTE (CALC) 3.83 10/3/uL (2.02-8.40); SEGMENTED NEUTROPHIL (0) 71 %; TOTAL NUCLEATED CELLS 100
[2017-03-15 04:53] LABS: PLATELET ESTIMATE SLT DEC (ADEQUATE)
[2017-03-15 04:55] LABS: PREALBUMIN 7.5 MG/DL (17.0-43.0)
[2017-03-16] MEDS ORDERED: PROMEGA PO (16:11)
[2017-03-22] MEDS ORDERED: NORV5 PO (09:46)
[2017-03-22] MEDS ORDERED: SINGULAIR1 PO (09:56)
[2017-03-22] MEDS ORDERED: ZOFRAN ODT4 MG PO (09:58)
[2017-03-22] MEDS ORDERED: REST75 PO (09:58)
[2017-03-22] MEDS ORDERED: PR25 PO (09:59)
[2017-03-22] MEDS ORDERED: FLONASE NAS (10:00)
[2017-03-22] MEDS ORDERED: ROCALTROL 0.0.25 MCG PO (10:01)
[2017-03-22] MEDS ORDERED: COREG25 PO (10:05)
[2017-03-22] MEDS ORDERED: ZYRTEC ALLGY10 MG PO (10:06)
[2017-03-22] MEDS ORDERED: IMU PO (10:07)
[2017-03-22] MEDS ORDERED: ASTELIN NAS (10:07)
[2017-03-22] MEDS ORDERED: ENDOCET1 TA1 PO (10:09)
[2017-05-13] MEDS ORDERED: BEVESPI AEROS10.7 GM INH (11:19)
[2017-05-13] MEDS ORDERED: PROAIR HFA INH (11:20)
[2017-05-13] MEDS ORDERED: STIOLTO RESPIMAT4 GM INH (11:21)
[2017-05-17] MEDS ORDERED: PROAIR HFA INH (19:19)
[2017-05-17] MEDS ORDERED: PRAVACHOL80 MG PO (19:19)
[2017-05-17] MEDS ORDERED: SENSIPAR30 MG PO (19:20)
[2017-05-17] MEDS ORDERED: STIOLTO RESPIMAT4 GM INH (19:20)
[2017-05-17] MEDS ORDERED: BEVESPI AEROS10.7 GM INH (19:20)
[2017-05-17] MEDS ORDERED: AT25 PO (19:21)
[2017-05-17] MEDS ORDERED: PLAVIX PO (19:21)
[2017-05-17] MEDS ORDERED: FOLIC ACID400 MC1 PO (19:22)
[2017-05-17] MEDS ORDERED: GENERLAC PO (19:22)
[2017-05-17] MEDS ORDERED: ASAB PO (19:22)
[2017-05-17] MEDS ORDERED: BIST PO (19:23)
[2017-05-17] MEDS ORDERED: ASTELIN NAS (19:24)
[2017-05-17] MEDS ORDERED: 8 HOUR650 MG PO (19:26)
[2017-05-17] MEDS ORDERED: NEO-OINT15 TOP (19:27)
[2017-05-19] MEDS ORDERED: PROTONIXIV (19:01)
== END 2017-03-16 17:00 | disposition home or self-care (01) | DRG 947 ==
LOC: 5SO 19:01
PROVIDERS: Internal Medicine Nephrology; Surgery
PROC: 0W9G3ZZ Drainage of Peritoneal Cavity, Percutaneous Approach (ICD-10-PCS; principal; 2017-03-13)
PROC: 5A1D60Z (ICD-10-PCS; 2017-03-14)
DX: R18.8 Other ascites (principal); N18.6 End stage renal disease; I13.2 Hypertensive heart and chronic kidney disease with heart failure and with stage 5 chronic kidney disease, or end stage renal disease; M32.9 Systemic lupus erythematosus, unspecified; I31.3 Pericardial effusion (noninflammatory); E46 Unspecified protein-calorie malnutrition; I50.32 Chronic diastolic (congestive) heart failure; Z99.2 Dependence on renal dialysis; E78.5 Hyperlipidemia, unspecified; I25.10 Atherosclerotic heart disease of native coronary artery without angina pectoris; I08.0 Rheumatic disorders of both mitral and aortic valves; Z79.02 Long term (current) use of antithrombotics/antiplatelets; Z79.899 Other long term (current) drug therapy; Z88.1 Allergy status to other antibiotic agents; Z88.0 Allergy status to penicillin; Z90.49 Acquired absence of other specified parts of digestive tract; Z86.73 Personal history of transient ischemic attack (TIA), and cerebral infarction without residual deficits
CPT/HCPCS: 49083; 76700; 80053; 80069; 80076; 82040; 82042; 82140; 82962; 83735; 84134; 84155; 85025; 85610; 85730; 87070; 87205; 88112; 88305; 93306; A9270-GY; G0257; J2405; P9047